=== PATIENT | male | born 1995 | race Caucasian/White ===

== ENCOUNTER → 2017-05-07 | Outpatient (CLI) | payer BC ==
[~2017-05-07] MED LIST: BUDE3CAP14 PO; GADAVIST IV PRN; GLUCAGON FOR INJ 1 MG VIAL IM SCH; NURSING VERBAL MED ORDER ONE
--- NOTE | 2017-05-07 15:39 | DIAGNOSTIC IMAGING REPORT ---
MR ENTEROGRAPHY CLINICAL HISTORY: Crohn's disease. Generalized abdominal pain. COMPARISON STUDY: Abdominal CT dated 05/06/2016. TECHNIQUE: MR enterography of the abdomen and pelvis is performed utilizing various T1 and T2-weighted sequences in the axial and coronal planes. Dynamic coronal imaging is performed and reviewed on a separate OsiriX independent workstation. Contrast enhanced images were acquired following the IV administration of 6.5 cc of Gadavist. 1 mg of glucagon was given intramuscularly prior to the examination. Examination is degraded by a paucity of intraperitoneal fat. FINDINGS: There is no bowel obstruction. There is a long segment of mildly thick-walled and hyperemic small bowel involving the distal/terminal ileum. This measures at least 20 cm in length. Mildly distended loops in the pelvis measure up to 3.5 cm and demonstrate air-fluid levels. The terminal ileum appears narrowed and mild stricturing is not excluded. No significant pericolonic inflammation is identified. Productive changes are suggested in the surrounding fat. There is no evidence of abscess or fistula. The liver, gallbladder, spleen, adrenal glands, kidneys, and pancreas are grossly normal as imaged. The pelvic viscera is normal as imaged. There is no abdominal ascites or pleural effusion. No abdominal lymphadenopathy is seen. The visualized bony structures are within normal limits. IMPRESSION: 1. There is a long segment of mildly thick-walled and hyperemic small bowel involving the distal/terminal ileum. This is consistent with the reported history of Crohn's disease. Active Crohn's disease is not excluded. 2. No bowel obstruction is seen. 3. There are mildly distended loops of small bowel in the deep pelvis with air-fluid levels. This may be related to a mild ileus. The terminal ileum appears decompressed and some degree of stricturing is not excluded. Clinical correlation will be required. 4. There is no evidence of abscess or fistula formation. Dictated: 05/07/2017 3:05 PM Transcribed: 05/07/2017 3:39 PM [facility] Electronically signed by: Andre Miramontes M.D. 05/07/2017 3:52 PM Dictated Date/Time: 05/07/2017 3:05 PM
== END | disposition home or self-care (01) ==
LOC: C.MRI 12:49
PROVIDERS: ATTEND Nurse Practitioner
DX: K50.813 Crohn's disease of both small and large intestine with fistula (principal); R10.10 Upper abdominal pain, unspecified

== ENCOUNTER → 2017-10-23 | Outpatient (CLI) | payer BC ==
[~2017-10-23] MED LIST changes: +BUDE1CAP6 PO; -BUDE3CAP14 PO; -GADAVIST IV PRN; -GLUCAGON FOR INJ 1 MG VIAL IM SCH; -NURSING VERBAL MED ORDER ONE
== END | disposition home or self-care (01) ==
LOC: C.RDSM 19:08
PROVIDERS: ATTEND Orthopaedic Surgery
DX: T14.8XXA Other injury of unspecified body region, initial encounter (principal); X58.XXXA Exposure to other specified factors, initial encounter

== ENCOUNTER 2021-10-28 18:51 | Inpatient (IN) ==
[2021-10-28 19:51] LABS: Appearance Urine Clear (Clear); Bacteria Urine Automated Negative (Negative); Blood Urine Negative (Negative); Color Urine Dark Yellow; Glucose Urine UA Negative (Negative); Ketones Urine 3+ (Negative); Leukocyte Esterase Urine Negative (Negative); Nitrite Urine Negative (Negative); Protein Urine Trace (Negative); RBC Urine Automated 0-4 /hpf (0-4); Specific Gravity Urine 1.038 (1.000-1.030); Urobilinogen Urine Negative (Negative); pH Urine 5.5 (4.5-7.5)
[2021-10-28 19:53] LABS: Basophils # (auto) 0.02 K/uL (0-0.2); Basophils % (auto) 0.2 %; Eosinophils # (auto) 0.06 K/uL (0-0.5); Eosinophils % (auto) 0.6 %; Hematocrit (blood only) 43.1 % (42-52); Hemoglobin 14.5 g/dL (14.0-18.0); Immature Granulocytes # (auto) 0.02 K/uL (0.00-0.02); Immature Granulocytes % (auto) 0.2 %; Lymphocytes # (auto) 1.76 K/uL (1.2-3.4); Lymphocytes % (auto) 17.9 %; Mean Corpuscular Hemoglobin 30.1 pg (25-34); Mean Corpuscular Hgb Conc 33.6 g/dL (32-36); Mean Corpuscular Volume 89.4 fL (80-100); Mean Platelet Volume 10.2 fL (7.4-10.4); Monocytes # (auto) 1.22 K/uL (0.11-0.59); Monocytes % (auto) 12.4 %; Neutrophils # (auto) 6.77 K/uL (1.4-6.5); Neutrophils % (auto) 68.7 %; Platelet Count 453 K/uL (130-400); RDW Coefficient of Variation 13.2 % (11.5-14.5); RDW Standard Deviation 43.4 fL (36.4-46.3); Red Blood Count 4.82 M/uL (4.7-6.1); White Blood Count 9.85 K/uL (4.8-10.8)
[2021-10-28 19:58] LABS: Bilirubin Urine 1+ (Negative)
[2021-10-28 20:13] LABS: Albumin Globulin Ratio 0.9 (0.9-2); BUN Creatinine Ratio 14.6 (10-20); Bilirubin,Total 0.5 mg/dl (0.2-1.0); Calcium 9.2 mg/dl (8.5-10.1); Creatinine Clr Calc Pharmacy 121.5 ml/min; Est GFR (African American) 126.8 ml/min; Est GFR (Non-African American) 109.4 ml/min; Globulin 4.4 gm/dl (2.5-4.0); Potassium 3.7 mmol/L (3.5-5.1); Total Protein 8.4 gm/dl (6.0-8.3)
[2021-10-28] MEDS ORDERED: SODIUM CHLORIDE 0.9% 1000ML 1,000 ML IV ONE (20:33)
[2021-10-28] MEDS ORDERED: OPTIRAY 320 100ml IV ONE (21:11)
--- NOTE | 2021-10-28 21:28 | CT Scan Report ---
CT abd pelvis IV con only CLINICAL HISTORY: llq pain TECHNIQUE: Helical axial images of the abdomen and pelvis were obtained and displayed. Automated dose lowering techniques and/or adjustment according to patient size were utilized for this exam. This e xam was performed with intravenous contrast. COMPARISON: None available at the time of this dictation. FINDINGS: Lower chest: No acute abnormality Liver: Unremarkable. No focal lesions are seen. Gallbladder and biliary tree: No calcified gallstones. Normal caliber wall. No intra- or extrahepatic biliary ductal dilation. Pancreas: Unremarkable, no focal lesions. Spleen: Unremarkable. Adrenals: Unremarkable. Kidneys and ureters: Unremarkable. Bladder: Unremarkable. Reproductive organs: Unremarkable. Bowel: There is marked wall thickening of the cecum and terminal ileum with surrounding fat stranding . There is a in adjacent fluid collection in the mid pelvis measuring approximately 52 x 24 mm. The a ppendix is normal. The remainder of the colon is normal in appearance. Of note, the fat plane between the inflamed bowel and the bladder is preserved. Lymph nodes Retroperitoneal: Unremarkable. Mesenteric: Unremarkable. Pelvic: Subcentimeter nodes are seen in the right external iliac stations. Peritoneum: Normal. Vessels: Unremarkable. Abdominal wall: A fat-containing umbilical hernia is seen. Bones: Unremarkable. IMPRESSION: Inflammatory changes of the terminal ileum and proximal ascending colon are seen, worsened from prior exam, with surrounding fat stranding and also abscess versus contained perforation in the adjacent m esentery. No fistulas are seen. Findings are compatible with history of Crohn's disease. ACT 112: Negative or not required by law. Electronically signed by: Asad Estrada M.D. 10/28/2021 9:27 PM
[2021-10-28] MEDS ORDERED: PIPERACILLIN/TAZOBACTAM 4.5 GM/120 ML BAG IV ONE (21:41)
--- NOTE | 2021-10-28 22:12 | Emergency Department Note ---
History of Present Illness General Chief Complaint: Abdominal Pain Stated Complaint: ABDOMINAL PAIN Time Seen by Provider: 10/28/21 20:24 History of Present Illness Provider Complaint: abdominal pain Onset (ago): 1 week(s) Pain Consistency: constant Location: LLQ Radiation: none Severity: moderate Maximum Pain Intensity: 6 Current Pain Intensity: 6 Quality: + stabbing and + sharp Relieved By: + nothing Exacerbated By: + nothing Context: + history of similar episodes (History of Crohn's disease); no foreign travel, no possible food poisoning, no sick contacts, no recent antibiotic use, no recent surgery/procedure or no recent injury Associated Symptoms: no nausea, no vomiting, no diarrhea, no fever, no chills, no constipation, no dysuria, no hematemesis, no hematochezia, no melena, no hematuria, no anorexia, no syncope, no headache, no neck pain, no back pain, no chest pain, no weakness, no breathing difficulty and no numbness Patient states he recently moved back to [facility] from [place]. Patient states he has been following up at [place] for his Crohn's disease and his GI doctor at [place] told him to come get a scan of his abdomen. He states in the past he seen Dr. Landaverde at [facility]. Home Medications Medication Instructions Recorded Confirmed Type infliximab 100 mg intravenous 0 mg IV .Q8WKS 10/28/21 10/28/21 History solution (Remicade) Allergies Allergy/AdvReac Type Severity Reaction Status Date / Time No Known Allergies Allergy Verified 10/28/21 21:16 Past Med/Surg History Medical History (Updated 10/28/21 @ 23:28 by [place]) Crohn disease No pertinent family history Surgical History (Updated 10/28/21 @ 22:10 by [place]) No pertinent past surgical history Social History Smoking Status: Never smoker Preferred Language: Yi Feels Safe at Home: Yes Review of Systems A total of 10 systems reviewed and were otherwise negative Physical Exam Vital Signs: Vital Signs - 24 hr 10/28/21 19:05 10/28/21 20:44 Temperature 36.9 C Temperature Source Temporal Artery Sc an Pulse Rate 105 H Pulse Rate [Finger ] 100 H Respiratory Rate 18 18 Respiratory Effort / Characteristics Non-Labored Sponta neous Non-Labored Respiratory Depth Normal Normal Respiratory Patter n Regular Blood Pressure 148/79 H Blood Pressure [Ri ght Arm] 141/81 H Blood Pressure Marcelina n 102 Blood Pressure Marcelina n [Right Arm] 101 Blood Pressure Pos ition Sitting Blood Pressure Pos ition [Right Arm] Sitting Pulse Oximetry 98 100 Oxygen Delivery Me thod Room Air Room Air Sepsis Recent Feve r Within 48 Hours No Sepsis New/Unexpla ined Change in Men petr Status N/A Sepsis Action Take n by Nursing No Action Required Physical Exam: Physical Exam GENERAL: He is oriented to person, place, and time. He appears well-developed and well-nourished. He does not appear distressed. HENT: Exam performed. - Head: Normocephalic and atraumatic. - Right Ear: External ear normal. No mastoid tenderness. - Left Ear: External ear normal. No mastoid tenderness. - Mouth/Throat: The oropharynx is clear and moist. No trismus in the jaw. No dental abscesses or uvula swelling. No oropharyngeal exudate or tonsillar abscesses. EYES: Conjunctivae and EOM are normal. Pupils are equal, round, and reactive to light. Right eye exhibits no discharge. Left eye exhibits no discharge. No scleral icterus. NECK: Normal range of motion. Neck supple. No JVD present. No spinous process tenderness present. No carotid bruit present. No rigidity. No tracheal deviation and normal range of motion present. No Brudzinski's sign and no Kernig's sign noted. CV: Normal rate, regular rhythm, normal heart sounds and intact distal pulses. There is no peripheral edema. Palpable radial pulses bue. PULM/CHEST: Effort normal and breath sounds normal. No respiratory distress. No stridor. He has no wheezes. He has no rales. - Chest Wall: He exhibits no tenderness. ABD: The abdomen is soft. Bowel sounds are normal. He has no distension. No mass is present. There is tenderness to palpation of the left lower quadrant. There is no rebound, no guarding, no Desai's sign and no tenderness at McBurney's point. Rovsig negative. MUSC/SKEL: Normal range of motion. There is no peripheral edema, tenderness or deformity. LYMPH: No cervical adenopathy. NEURO: He is alert and oriented to person, place, and time. He has normal strength. No cranial nerve deficit or sensory deficit. Coordination and gait normal. GCS eye subscore is 4. GCS verbal subscore is 5. GCS motor subscore is 6. Cerebellar tests wnl. SKIN: Skin is warm and dry. He is not diaphoretic. PSYCH: He has a normal mood and affect. Behavior is normal. Judgment and thought content normal. Course Course 2023: The patient was evaluated in room B4. A complete history and physical exam was performed Cardiac monitoring: An order was placed for continuous cardiac monitoring. The monitor shows a rate of 100 with sinus rhythm 2132: Vital signs stable. Labs within normal limits. CT of the abdomen showed wall thickening of the cecum and terminal ileum with surrounding fat stranding. There is an adjacent fluid collection in the mid pelvis measuring 52 x 24 mm with surrounding fat stranding which could represent an abscess versus contained perforation. Discussed case with on-call surgery Dr. Curran who states he recommends transfer for IR drainage. Patient states he prefers to go to either [place] or [facility]. 2147: Spoke with Dr. Zapata colorectal surgery [facility] who states that there are no beds available. Will attempt to call [facility]. 2155: [place] loading unit operator powder charging states she spoke with [facility] and there are no beds available. Discussed this with the patient and he is okay to try and contact [facility] to see if there are beds available. 2210: Spoke with Dr. Antoine Gallo and there are no beds available. Dr. Schultz states she is happy to accept the patient however she is not sure when a bed will be available. Will attempt to contact [facility] again as there are no beds available at [facility] and the patient is known to [facility] 2220: Spoke with [place] transfer center at [facility] who states there are no beds available and they are not sure when a bed will be available. Spoke with Dr. Anne colorectal surgery who states that there are no beds available also and that they wish they can help with there not sure if they will be available to be concerned about available. I did explain to Dr. Anne that the patient is becoming extremely frustrated as there are no beds available at 3 tertiary care centers and has mentioned that he is thinking about driving himself down to [facility]. Both he and the transfer state and are stated that if the patient chooses to this he could check into the emergency department. 2245: Spoke with general surgery at [facility] Dr. Curran who states that if there are no beds available at any tertiary care center the patient can be admitted to the medicine team and he will be on consult. He states that he will not be performing any surgery on the patient but he can be admitted to medicine and he can be on consult until bed becomes available at the tertiary care center. I did talk to the patient about this and the patient states he wants to discuss with his parents about what to do. 2325: Vital signs stable. After much discussion with his family members, the patient states he chooses to be aditted here at this facility for another bed to be available [facility]. Called transfer center back and spoke with Dr. Anne again who stated that he would be the accepting physician. Dr. Quiroz [facility] hospitalist was made aware of the patient and the plan. Dr. Curran placed on consult Administered Medications Discontinued Medications Sodium Chloride (Nss 1000ml) 1,000 mls @ 999 mls/hr IV .Q1H1M ONE Stop: 10/28/21 21:33 Last Infusion: 10/28/21 21:44 Dose: 0 mls/hr Documented by: [id number] Admin: 10/28/21 20:40 Dose: 999 mls/hr Documented by: [id number] Piperacillin Sod/Tazobactam Sod (Zosyn) 4.5 gm in 120 mls @ 240 mls/hr IV NOW ONE Stop: 10/28/21 22:10 Last Infusion: 10/28/21 22:18 Dose: 0 mls/hr Documented by: [id number] Admin: 10/28/21 21:46 Dose: 240 mls/hr Documented by: [id number] Ioversol (Optiray 320 100ml) 95 ml IV ONCE ONE Stop: 10/28/21 21:12 Last Admin: 10/28/21 21:15 Dose: 95 ml Documented by: [id number] Medical Decision Making Laboratory Data Result diagrams: 10/28/21 19:35 10/28/21 19:35 Lab Results 10/28/21 10/28/21 10/28/21 Range/Units 19:30 19:35 19:35 WBC 9.85 (4.8-10.8) K/uL RBC 4.82 (4.7-6.1) M/uL Hgb 14.5 (14.0-18.0) g/dL Hct 43.1 (42-52) % MCV 89.4 (80-100) fL MCH 30.1 (25-34) pg MCHC 33.6 (32-36) g/dL RDW Std Deviation 43.4 (36.4-46.3) fL RDW Coeff of Tanvir 13.2 (11.5-14.5) % Plt Count 453 H (130-400) K/uL MPV 10.2 (7.4-10.4) fL Immature Gran % (Auto) 0.2 % Neut % (Auto) 68.7 % Lymph % (Auto) 17.9 % Clayton % (Auto) 12.4 % Eos % (Auto) 0.6 % Baso % (Auto) 0.2 % Neut # (Auto) 6.77 H (1.4-6.5) K/uL Lymph # (Auto) 1.76 (1.2-3.4) K/uL Clayton # (Auto) 1.22 H (0.11-0.59) K/uL Eos # (Auto) 0.06 (0-0.5) K/uL Baso # (Auto) 0.02 (0-0.2) K/uL Immature Gran # (Auto) 0.02 (0.00-0.02) K/uL Sodium 135 L (136-145) mmol/L Potassium 3.7 (3.5-5.1) mmol/L Chloride 100 (98-107) mmol/L Carbon Dioxide 24 (21-32) mmol/L Anion Gap 11 (3-11) BUN 14 (6-23) mg/dl Creatinine 0.96 (0.6-1.4) mg/dl Est Cr Clr Drug Dosing 121.5 ml/min Est GFR ( Amer) 126.8 ml/min Est GFR (Non-Af Amer) 109.4 ml/min BUN/Creatinine Ratio 14.6 (10-20) Glucose 87 (70-99(Fasting)) mg/dl Calcium 9.2 (8.5-10.1) mg/dl Total Bilirubin 0.5 (0.2-1.0) mg/dl AST 12 L (13-39) U/L ALT 12 (7-52) U/L Alkaline Phosphatase 85 (34-104) U/L Total Protein 8.4 H (6.0-8.3) gm/dl Albumin 4.0 (3.4-5.0) gm/dl Globulin 4.4 H (2.5-4.0) gm/dl Albumin/Globulin Ratio 0.9 (0.9-2) Lipase 9 L (11-82) U/L Urine Color Dark Yellow Urine Appearance Clear (Clear) Urine pH 5.5 (4.5-7.5) Ur Specific Juliette 1.038 H (1.000-1.030) Urine Protein Trace H (Negative) Urine Glucose (UA) Negative (Negative) Urine Ketones 3+ H (Negative) Urine Blood Negative (Negative) Urine Nitrite Negative (Negative) Urine Bilirubin 1+ H (Negative) Urine Urobilinogen Negative (Negative) Ur Leukocyte Esterase Negative (Negative) Urine WBC (Auto) 1-5 (0-5) /hpf Urine RBC (Auto) 0-4 (0-4) /hpf U Hyaline Cast (Auto) 5-10 H (0-5) /lpf U Epithel Cells (Auto) 5-10 H (0-5) /lpf Urine Bacteria (Auto) Negative (Negative) SARS-CoV-2, RNA, NAAT (NEGATIVE) 10/28/21 Range/Units 21:51 WBC (4.8-10.8) K/uL RBC (4.7-6.1) M/uL Hgb (14.0-18.0) g/dL Hct (42-52) % MCV (80-100) fL MCH (25-34) pg MCHC (32-36) g/dL RDW Std Deviation (36.4-46.3) fL RDW Coeff of Tanvir (11.5-14.5) % Plt Count (130-400) K/uL MPV (7.4-10.4) fL Immature Gran % (Auto) % Neut % (Auto) % Lymph % (Auto) % Clayton % (Auto) % Eos % (Auto) % Baso % (Auto) % Neut # (Auto) (1.4-6.5) K/uL Lymph # (Auto) (1.2-3.4) K/uL Clayton # (Auto) (0.11-0.59) K/uL Eos # (Auto) (0-0.5) K/uL Baso # (Auto) (0-0.2) K/uL Immature Gran # (Auto) (0.00-0.02) K/uL Sodium (136-145) mmol/L Potassium (3.5-5.1) mmol/L Chloride (98-107) mmol/L Carbon Dioxide (21-32) mmol/L Anion Gap (3-11) BUN (6-23) mg/dl Creatinine (0.6-1.4) mg/dl Est Cr Clr Drug Dosing ml/min Est GFR ( Amer) ml/min Est GFR (Non-Af Amer) ml/min BUN/Creatinine Ratio (10-20) Glucose (70-99(Fasting)) mg/dl Calcium (8.5-10.1) mg/dl Total Bilirubin (0.2-1.0) mg/dl AST (13-39) U/L ALT (7-52) U/L Alkaline Phosphatase (34-104) U/L Total Protein (6.0-8.3) gm/dl Albumin (3.4-5.0) gm/dl Globulin (2.5-4.0) gm/dl Albumin/Globulin Ratio (0.9-2) Lipase (11-82) U/L Urine Color Urine Appearance (Clear) Urine pH (4.5-7.5) Ur Specific Juliette (1.000-1.030) Urine Protein (Negative) Urine Glucose (UA) (Negative) Urine Ketones (Negative) Urine Blood (Negative) Urine Nitrite (Negative) Urine Bilirubin (Negative) Urine Urobilinogen (Negative) Ur Leukocyte Esterase (Negative) Urine WBC (Auto) (0-5) /hpf Urine RBC (Auto) (0-4) /hpf U Hyaline Cast (Auto) (0-5) /lpf U Epithel Cells (Auto) (0-5) /lpf Urine Bacteria (Auto) (Negative) SARS-CoV-2, RNA, NAAT NEGATIVE (NEGATIVE) Imaging Data Radiologist's Impression: Abdomen/Pelvis CT 10/28/21 20:33 CT abd pelvis IV con only CLINICAL HISTORY: llq pain TECHNIQUE: Helical axial images of the abdomen and pelvis were obtained and displayed. Automated dose lowering techniques and/or adjustment according to patient size were utilized for this exam. This exam was performed with intravenous contrast. COMPARISON: None available at the time of this dictation. FINDINGS: Lower chest: No acute abnormality Liver: Unremarkable. No focal lesions are seen. Gallbladder and biliary tree: No calcified gallstones. Normal caliber wall. No intra- or extrahepatic biliary ductal dilation. Pancreas: Unremarkable, no focal lesions. Spleen: Unremarkable. Adrenals: Unremarkable. Kidneys and ureters: Unremarkable. Bladder: Unremarkable. Reproductive organs: Unremarkable. Bowel: There is marked wall thickening of the cecum and terminal ileum with surrounding fat stranding. There is a in adjacent fluid collection in the mid pelvis measuring approximately 52 x 24 mm. The appendix is normal. The remainder of the colon is normal in appearance. Of note, the fat plane between the inflamed bowel and the bladder is preserved. Lymph nodes Retroperitoneal: Unremarkable. Mesenteric: Unremarkable. Pelvic: Subcentimeter nodes are seen in the right external iliac stations. Peritoneum: Normal. Vessels: Unremarkable. Abdominal wall: A fat-containing umbilical hernia is seen. Bones: Unremarkable. IMPRESSION: Inflammatory changes of the terminal ileum and proximal ascending colon are seen, worsened from prior exam, with surrounding fat stranding and also abscess versus contained perforation in the adjacent mesentery. No fistulas are seen. Findings are compatible with history of Crohn's disease. ACT 112: Negative or not required by law. Electronically signed by: Asad Estrada M.D. 10/28/2021 9:27 PM MDM Narrative 2023: The patient was evaluated in room B4. A complete history and physical exam was performed Cardiac monitoring: An order was placed for continuous cardiac monitoring. The monitor shows a rate of 100 with sinus rhythm 2132: Vital signs stable. Labs within normal limits. CT of the abdomen showed wall thickening of the cecum and terminal ileum with surrounding fat stranding. There is an adjacent fluid collection in the mid pelvis measuring 52 x 24 mm with surrounding fat stranding which could represent an abscess versus contained perforation. Discussed case with on-call surgery Dr. Curran who states he recommends transfer for IR drainage. Patient states he prefers to go to either [place] or [facility]. 2147: Spoke with Dr. Zapata colorectal surgery [facility] who states that there are no beds available. Will attempt to call [facility]. 2154: [place] loading unit operator powder charging states she spoke with [facility] and there are no beds available. Discussed this with the patient and he is okay to try and contact [facility] to see if there are beds available. 2210: Spoke with Dr. Antoine Gallo and there are no beds available. Dr. Schultz states she is happy to accept the patient however she is not sure when a bed will be available. Will attempt to contact [facility] again as there are no beds available at [facility] and the patient is known to [facility] 2220: Spoke with [place] transfer center at [facility] who states there are no beds available and they are not sure when a bed will be available. Spoke with Dr. Anne colorectal surgery who states that there are no beds available also and that they wish they can help with there not sure if they will be available to be concerned about available. I did explain to Dr. Anne that the patient is becoming extremely frustrated as there are no beds available at 3 tertiary care centers and has mentioned that he is thinking about driving himself down to [facility]. Both he and the transfer state and are stated that if the patient chooses to this he could check into the emergency department. 2245: Spoke with general surgery at [facility] Dr. Curran who states that if there are no beds available at any tertiary care center the patient can be admitted to the medicine team and he will be on consult. He states that he will not be performing any surgery on the patient but he can be admitted to medicine and he can be on consult until bed becomes available at the tertiary care center. I did talk to the patient about this and the patient states he wants to discuss with his parents about what to do. 2325: Vital signs stable. After much discussion with his family members, the patient states he chooses to be aditted here at this facility for another bed to be available [facility]. Called transfer center back and spoke with Dr. Anne again who stated that he would be the accepting physic hima. Dr. Quiroz [facility] hospitalist was made aware of the patient and the plan. Dr. Curran placed on consult Impression & Plan Crohn disease Discharge Plan Visit Data Chief Complaint: Abdominal Pain Stated Complaint: ABDOMINAL PAIN ED Provider: [place] Discharge Problem: Crohn disease Patient Disposition: Being Evaluated by Hospitalist Forms Stand Alone Forms: [facility] Prescriptions Prescriptions: No Action infliximab [Remicade] 100 mg Recon Soln 0 mg IV .Q8WKS RF: 0 Referrals Referrals: PCP,NO [Primary Care Provider] - Discharge Problem: Crohn disease Qualifiers: Gastrointestinal tract location: unspecified location Digestive disease complication type: with abscess Qualified Code(s): K50.914 - Crohn's disease, unspecified, with abscess
--- NOTE | 2021-10-28 23:47 | History & Physical Report ---
Date of Service October 28, 2021 Assessment & Plan (1) Abdominal pain: Plan: Rodrigue Gongora is a 26yo male with PMHx significant for Crohn's disease (gets Remicade injections Q8wks - last on 10/07) who presented to [facility] ED on 10/28 for abdominal pain - found to have abscess vs contained perforation in proximal ascending colon. Abdominal Pain LLQ abdominal pain with intermittent fever/chills x1 week. CT A/P with inflammatory changes in terminal ileum and proximal ascending colon (worsened from prior exam) as well as abscess vs contained perforation in adjacent mesentery, without fistulas. - General Surgery consulted - recommends IR drainage at tertiary center. Currently there are no available beds at [facility], [facility] or [facility]. Patient has decided to be admitted here for med management. Dr. Curran will be consulted, and he is currently on wait list for a bed at [facility] (Dr. Anne is accepting physician) - continue Zosyn 4.5g IV Q8H - will not start steroids at this time given abscess vs contained perf - NPO, will start LR @80cc/hr - Tylenol 1g IV Q8H PRN for pain Crohn's Disease No previous surgeries. Symptoms had previously been well controlled on Remicade. - Remicade not due for another 5 weeks FEN/GI: NPO, LR @80cc/hr DVT Prophylaxis: not indicated Code Status: full code Disposition: med/surg with tele (2) Crohn disease: History of Present Illness Chief Complaint: abdominal pain Primary Care Provider: NO PCP Rodrigue Gongora is a 26yo male with PMHx significant for Crohn's disease (gets Remicade injections Q8wks - last on 10/07) who presented to [facility] ED on 10/28 for constant LLQ abdominal pain x, without associated fever/chills, diarrhea /hematochezia/melena or N/V/hematemesis. Patient follows with [facility] GI for Crohn's disease and associated Remicade injections - he contacted his GI doctor regarding these symptoms and he was told to come for evaluation. In the ED, the patient was tachycardic to 105bpm and mildly hypertensive to 148/79 but otherwise hemodynamically stable and afebrile. Laboratory evaluation significant for plts 453, Na 135. Otherwise CBC/CMP unremarkable. Lipase WNL. UA without sign of infection. CT A/P showing inflammatory changes in terminal ileum and proximal ascending colon (worsened from prior exam) as well as abscess vs contained perforation in adjacent mesentery, without fistulas. Patient was given 1L NSS bolus and was started on Zosyn. Has not received pain medications thus far. Dr. Curran was consulted and recommends transfer to tertiary center for IR drainage, but there are currently no available beds in [facility], [facility] or [facility]. Patient has decided to be admitted here for med management. Dr. Curran will be consulted, and he is currently on wait list for a bed at [facility] (Dr. Anne is accepting physician). 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 NAD. Cooperative. HEENT: Atraumatic, normocephalic. Pulm: CTAB A&P. -wheezes, -rales, -rhonchi. Symmetrical chest rise. No increase work of breathing. No respiratory distress. Cardiac: RRR, -mrg. Radial pulses intact and symmetrical. Abdominal: soft, non-distended, NA BS x 4, mild TTP in LLQ without rebound or guarding Skin: warm, dry, no rash Results & Data Results & Data ([facility]) Vital Signs (Past 12 Hours) Vital Signs Temp Pulse Pulse Resp BP BP Pulse Ox 10/28/21 20:44 100 H 18 141/81 H 100 10/28/21 19:05 36.9 C 105 H 18 148/79 H 98 Supervising Physician Co-Signing Physician Notes Attending addendum: I have physically seen this patient, have supervised the medical residents activities, and agree with the H&P unless as otherwise noted. Assessment and Plan: Crohn's exacerbation/inflammation in terminal ileum and proximal ascending colon- Abscess versus contained perforation and adjacent mesentery Zosyn 4.5 g IV every 8 hours N.p.o. LR at 80 mils per hour Acetaminophen 1 g IV every 8 hours as needed mild pain or fever On Remicade in outpatient setting Follows with [facility] physicians Consult to surgery, recommended referral to tertiary care center for IR drainage, however, multiple attempts to facilities showed unavailability of bed Zofran 4 mg IV every 6 hours as needed Famotidine 20 mg IV every 12 hours Resident Activity Tracking Resident Involvement: Resident Care Provided Care Provided: Adult Hospital Medicine (1) Crohn disease Digestive disease complication type: with abscess Gastrointestinal tract location: unspecified location Qualified Code(s): K50.914 - Crohn's disease, unspecified, with abscess
[2021-10-29] MEDS ORDERED: ACETAMINOPHEN 1000 MG/100 ML IV IV PRN (00:13)
[2021-10-29] MEDS: LACTATED RINGER'S 1,000 ML IV SCH ×3 (00:56→21:18)
--- NOTE | 2021-10-29 00:58 | Surgery Consultation ---
Date of Consultation October 29, 2021 Assessment & Plan (1) Crohn disease: (2) Perforated abdominal viscus: 26-year-old with a history of Crohn's disease presents with abdominal pain and CT scan demonstrating contained perforation and inflammation of the terminal ileum. This most likely related to his Crohn's disease. He is not tachycardic and does not have a fever. White blood cell count is normal. He will be admitted to the hospital and placed on IV fluids and IV antibiotics. Discussion about possible transfer to tertiary care center for IR drainage of the abscess if he does not improve. We will follow him closely. History of Present Illness Reason for Consultation: 26-year-old with Crohn's disease and contained perforation Requesting Physician: MD Ras Attending Physician: MD Ras History of Present Illness 26-year-old gentleman with a 5-year history of Crohn's disease presents with worsening right lower quadrant pain and subjective fevers at home. He denies nausea or vomiting. He has not had a bowel movement today, however they have been normal. He has never had surgery on his abdomen. He has had 1 or 2 episodes of partial small bowel obstruction due to the Crohn's. He follows with a GI doctor in [facility]. CT scan demonstrates terminal ileitis with what appears to be contained perforation with small abscess measuring 2 x 5 cm in diameter. He denies chest pain or shortness of breath. Allergies Allergy/AdvReac Type Severity Reaction Status Date / Time No Known Allergies Allergy Verified 10/28/21 21:16 Home Medications Medication Instructions Recorded Confirmed Type infliximab 100 mg intravenous 0 mg IV .Q8WKS 10/28/21 10/28/21 History solution (Remicade) Patient History Medical History Crohn disease No pertinent family history Surgical History No pertinent past surgical history Social History Smoking Status: Never smoker Preferred Language: Hebrew Feels Safe at Home: Yes Review of Systems Review of Systems: All systems reviewed & are unremarkable except as noted in HPI & below Physical Exam Constitutional: WD/WN, vitals as above Neck: trachea midline, no thyromegaly Respiratory: normal respiratory effort, lungs clear to auscultation Cardiovascular: RRR, no murmur, no edema Gastrointestinal (Abdomen): Inspection/Auscultation: abdomen normal to inspection; abdomen not distended Percussion/Palpation: + abdomen tender (Suprapubic area/right lower quadrant) and abdomen soft; no guarding and abdomen not rigid Musculoskeletal: Extremities: no cyanosis and no clubbing Skin: no rashes, warm and dry Psychiatric: A+Ox3, euthymic affect Results & Data ([facility]) Vital Signs (Past 12 Hours) Vital Signs Temp Pulse Pulse Resp BP BP Pulse Ox 10/28/21 20:44 100 H 18 141/81 H 100 10/28/21 19:05 36.9 C 105 H 18 148/79 H 98 Laboratory Results 10/28/21 10/28/21 10/28/21 Range/Units 21:51 19:35 19:35 WBC 9.85 (4.8-10.8) K/uL RBC 4.82 (4.7-6.1) M/uL Hgb 14.5 (14.0-18.0) g/dL Hct 43.1 (42-52) % MCV 89.4 (80-100) fL MCH 30.1 (25-34) pg MCHC 33.6 (32-36) g/dL RDW Std Deviation 43.4 (36.4-46.3) fL RDW Coeff of Tanvir 13.2 (11.5-14.5) % Plt Count 453 H (130-400) K/uL MPV 10.2 (7.4-10.4) fL Immature Gran % (Auto) 0.2 % Neut % (Auto) 68.7 % Lymph % (Auto) 17.9 % Bulloch % (Auto) 12.4 % Eos % (Auto) 0.6 % Baso % (Auto) 0.2 % Neut # (Auto) 6.77 H (1.4-6.5) K/uL Lymph # (Auto) 1.76 (1.2-3.4) K/uL Bulloch # (Auto) 1.22 H (0.11-0.59) K/uL Eos # (Auto) 0.06 (0-0.5) K/uL Baso # (Auto) 0.02 (0-0.2) K/uL Immature Gran # (Auto) 0.02 (0.00-0.02) K/uL Sodium 135 L (136-145) mmol/L Potassium 3.7 (3.5-5.1) mmol/L Chloride 100 (98-107) mmol/L Carbon Dioxide 24 (21-32) mmol/L Anion Gap 11 (3-11) BUN 14 (6-23) mg/dl Creatinine 0.96 (0.6-1.4) mg/dl Est Cr Clr Drug Dosing 121.5 ml/min Est GFR ( Amer) 126.8 ml/min Est GFR (Non-Af Amer) 109.4 ml/min BUN/Creatinine Ratio 14.6 (10-20) Glucose 87 (70-99(Fasting)) mg/dl Calcium 9.2 (8.5-10.1) mg/dl Total Bilirubin 0.5 (0.2-1.0) mg/dl AST 12 L (13-39) U/L ALT 12 (7-52) U/L Alkaline Phosphatase 85 (34-104) U/L Total Protein 8.4 H (6.0-8.3) gm/dl Albumin 4.0 (3.4-5.0) gm/dl Globulin 4.4 H (2.5-4.0) gm/dl Albumin/Globulin Ratio 0.9 (0.9-2) Lipase 9 L (11-82) U/L Urine Color Urine Appearance (Clear) Urine pH (4.5-7.5) Ur Specific [place] (1.000-1.030) Urine Protein (Negative) Urine Glucose (UA) (Negative) Urine Ketones (Negative) Urine Blood (Negative) Urine Nitrite (Negative) Urine Bilirubin (Negative) Urine Urobilinogen (Negative) Ur Leukocyte Esterase (Negative) Urine WBC (Auto) (0-5) /hpf Urine RBC (Auto) (0-4) /hpf U Hyaline Cast (Auto) (0-5) /lpf U Epithel Cells (Auto) (0-5) /lpf Urine Bacteria (Auto) (Negative) SARS-CoV-2, RNA, NAAT NEGATIVE (NEGATIVE) 10/28/21 Range/Units 19:30 WBC (4.8-10.8) K/uL RBC (4.7-6.1) M/uL Hgb (14.0-18.0) g/dL Hct (42-52) % MCV (80-100) fL MCH (25-34) pg MCHC (32-36) g/dL RDW Std Deviation (36.4-46.3) fL RDW Coeff of Tanvir (11.5-14.5) % Plt Count (130-400) K/uL MPV (7.4-10.4) fL Immature Gran % (Auto) % Neut % (Auto) % Lymph % (Auto) % [place] % (Auto) % Eos % (Auto) % Baso % (Auto) % Neut # (Auto) (1.4-6.5) K/uL Lymph # (Auto) (1.2-3.4) K/uL Bull[place] # (Auto) (0.11-0.59) K/uL Eos # (Auto) (0-0.5) K/uL Baso # (Auto) (0-0.2) K/uL Immature Gran # (Auto) (0.00-0.02) K/uL Sodium (136-145) mmol/L Potassium (3.5-5.1) mmol/L Chloride (98-107) mmol/L Carbon Dioxide (21-32) mmol/L Anion Gap (3-11) BUN (6-23) mg/dl Creatinine (0.6-1.4) mg/dl Est Cr Clr Drug Dosing ml/min Est GFR ( Amer) ml/min Est GFR (Non-Af Amer) ml/min BUN/Creatinine Ratio (10-20) Glucose (70-99(Fasting)) mg/dl Calcium (8.5-10.1) mg/dl Total Bilirubin (0.2-1.0) mg/dl AST (13-39) U/L ALT (7-52) U/L Alkaline Phosphatase (34-104) U/L Total Protein (6.0-8.3) gm/dl Albumin (3.4-5.0) gm/dl Globulin (2.5-4.0) gm/dl Albumin/Globulin Ratio (0.9-2) Lipase (11-82) U/L Urine Color Dark Yellow Urine Appearance Clear (Clear) Urine pH 5.5 (4.5-7.5) Ur Specific [place] 1.038 H (1.000-1.030) Urine Protein Trace H (Negative) Urine Glucose (UA) Negative (Negative) Urine Ketones 3+ H (Negative) Urine Blood Negative (Negative) Urine Nitrite Negative (Negative) Urine Bilirubin 1+ H (Negative) Urine Urobilinogen Negative (Negative) Ur Leukocyte Esterase Negative (Negative) Urine WBC (Auto) 1-5 (0-5) /hpf Urine RBC (Auto) 0-4 (0-4) /hpf U Hyaline Cast (Auto) 5-10 H (0-5) /lpf U Epithel Cells (Auto) 5-10 H (0-5) /lpf Urine Bacteria (Auto) Negative (Negative) SARS-CoV-2, RNA, NAAT (NEGATIVE) Diagnostic Findings CT abd pelvis IV con only CLINICAL HISTORY: llq pain TECHNIQUE: Helical axial images of the abdomen and pelvis were obtained and displayed. Automated dose lowering techniques and/or adjustment according to patient size were utilized for this exam. This exam was performed with intravenous contrast. COMPARISON: None available at the time of this dictation. FINDINGS: Lower chest: No acute abnormality Liver: Unremarkable. No focal lesions are seen. Gallbladder and biliary tree: No calcified gallstones. Normal caliber wall. No intra- or extrahepatic biliary ductal dilation. Pancreas: Unremarkable, no focal lesions. Spleen: Unremarkable. Adrenals: Unremarkable. Kidneys and ureters: Unremarkable. Bladder: Unremarkable. Reproductive organs: Unremarkable. Bowel: There is marked wall thickening of the cecum and terminal ileum with surrounding fat stranding. There is a in adjacent fluid collection in the mid pelvis measuring approximately 52 x 24 mm. The appendix is normal. The remainder of the colon is normal in appearance. Of note, the fat plane between the inflamed bowel and the bladder is preserved. Lymph nodes Retroperitoneal: Unremarkable. Mesenteric: Unremarkable. Pelvic: Subcentimeter nodes are seen in the right external iliac stations. Peritoneum: Normal. Vessels: Unremarkable. Abdominal wall: A fat-containing umbilical hernia is seen. Bones: Unremarkable. IMPRESSION: Inflammatory changes of the terminal ileum and proximal ascending colon are seen, worsened from prior exam, with surrounding fat stranding and also abscess versus contained perforation in the adjacent mesentery. No fistulas are seen. Findings are compatible with history of Crohn's disease. (1) Crohn disease Digestive disease complication type: with abscess Gastrointestinal tract location: unspecified location Qualified Code(s): K50.914 - Crohn's disease, unspecified, with abscess
[2021-10-29] MEDS ORDERED: PIPERACILL/TAZOBAC CONSULT ACTIVE PRN (01:47)
[2021-10-29] MEDS: PIPERACILLIN/TAZOBACTAM 3.375 GM in DEXTROSE 5% 100 ML IV SCH ×2 (02:14→10:09)
[2021-10-29] MEDS ORDERED: PIPERACILLIN/TAZOBACTAM 4.5 GM in DEXTROSE 5% 100 ML IV SCH (05:00)
[2021-10-29 05:57] LABS: Basophils # (auto) 0.02 K/uL (0-0.2); Basophils % (auto) 0.2 %; Eosinophils # (auto) 0.12 K/uL (0-0.5); Eosinophils % (auto) 1.1 %; Hematocrit (blood only) 38.1 % (42-52); Hemoglobin 12.5 g/dL (14.0-18.0); Immature Granulocytes # (auto) 0.02 K/uL (0.00-0.02); Immature Granulocytes % (auto) 0.2 %; Lymphocytes # (auto) 1.93 K/uL (1.2-3.4); Lymphocytes % (auto) 17.6 %; Mean Corpuscular Hemoglobin 29.6 pg (25-34); Mean Corpuscular Hgb Conc 32.8 g/dL (32-36); Mean Corpuscular Volume 90.3 fL (80-100); Monocytes # (auto) 1.52 K/uL (0.11-0.59); Monocytes % (auto) 13.9 %; Neutrophils # (auto) 7.36 K/uL (1.4-6.5); Platelet Count 426 K/uL (130-400); RDW Coefficient of Variation 13.3 % (11.5-14.5); RDW Standard Deviation 44.4 fL (36.4-46.3); Red Blood Count 4.22 M/uL (4.7-6.1); White Blood Count 10.97 K/uL (4.8-10.8)
[2021-10-29 06:13] LABS: BUN Creatinine Ratio 9.8 (10-20); Calcium 9.5 mg/dl (8.5-10.1); Creatinine Clr Calc Pharmacy 114.3 ml/min; Est GFR (African American) 117.9 ml/min; Est GFR (Non-African American) 101.7 ml/min; Potassium 3.6 mmol/L (3.5-5.1)
--- NOTE | 2021-10-29 07:25 | Hospitalist Progress Note ---
Date of Service October 29, 2021 Assessment & Plan (1) Crohn disease: (2) Perforated abdominal viscus: (3) Abdominal pain: Plan: Summary: 26 y/o M with Crohn's tx w/ Remicade for past 6 years who presented with LLQ showing radiologic evidence of either abscess vs. contained perforation in the terminal ileum/proximal ascending colon #Crohn's disease, #perforated abdominal viscus & #abdominal pain -supported by known hx of Crohn's, LLQ pain, leukocytosis. Primarily receives care for this from Dr. Villatoro at [facility] -complicated by abscess vs. contained perforation seen on CT abd/pelvis -pt is hemodynamically stable, IR drainage is warranted, waiting on placement to either [facility] -switch IV Zosyn to IV Unasyn as there are no major risk factors for Pseudomonas -continue IV LRs and IV Tylenol -monitor symptoms, vitals, and labs/diagnostics -FHx noteworthy for UC in father #Disposition -given that pt is medically stable, continue conservative medical management until bed opens up elsewhere for his IR procedure. -was accepted at [facility] -continue to monitor for any worsening in condition #FENGI: NPO Full code Admission and Anticipated Discharge Date Admission Date: October 29, 2021 Supervising Physician Co-Signing Physician Notes I personally examined the patient and verified all ulloa points of history and exam, discussed case, and agree with decision making with Kendal Desai MS2 feeling better abdominal pain better, still awaiting placement vitals noted nad heent nc at mmm breathing unlabored no accessory muscles good effort skin no rashes no pallor or icterus crohn's complicated by abscess - fortunately stable on abx. will still want to transfer to tertiary given crohn's / concern for inflammation potentially precpititating fistula, etc -- would want drained unless truly improves dramatically on abx alone. also given this flare would want his GI to eval for ?ongoing remicaide vs needing to consider other options otherwise as above Subjective CC: LLQ abdominal pain HPI: Rodrigue is a 26 y/o M w/ PMHx of Crohn's disease diagnosed in 2016/treated with Remicade, monitored by Dr. Villatoro ([facility]), who came to the ED on 10/28/[address] Villatoro's recommendation. In the week leading up to his ED presentation, he noted LLQ abdominal pain exacerbated with bowel movements and minimally alleviated by Tylenol. He also received blood work from [facility] (ordered by Dr. Villatoro), which the pt states showed "inflammation." He felt his sx were consistent with a Crohn's and noted having a single episode of fever (101 F) which occurred on 10/25/21. In the weeks leading up to his sx he had changes to his diet which he thinks may have contributed to his sx. Aside from his current presentation he has a hx of 1-2 partial SBOs 2/2 Crohn's, but otherwise has no surgical history and takes no medications besides Remicade. In the ED he was afebrile, tachycardic at 105, BP was 148/97, RR was 18, SpO2 was 98% on RA. CT abd/pelvis was ordered and showed the following: "Inflammatory changes of the terminal ileum and proximal ascending colon are seen, worsened from prior exam, with surrounding fat stranding and also abscess versus contained perforation in the adjacent mesentery. No fistulas are seen. Findings are compatible with history of Crohn's disease" Given his radiologic findings, [facility] were called to see if they could do IR drainage of the abscess vs. contained perforation, but none of them had available beds. [facility] will not operate. In the meantime he was started on IV Zosyn 3.375g q8hr, IV LRs q8hr, IV Tylenol 1g q8hr PRN. Today he reports that he feels stable, has not developed any new symptoms, and is looking forward to a bed opening at one of the tertiary centers listed above. See below for ROS. He did not have any questions for me or for the hospitalist magdalena merino. Review of Systems Review of Systems: Today denies bloody/mucoid stools, weight changes, sweats, abdominal distention, bleeding, bruising, palpitations, rashes, SOB, chest pain, presyncope/syncope Physical Exam Constitutional: WD/WN, vitals as above Respiratory: normal respiratory effort, lungs clear to auscultation Cardiovascular: RRR, no murmur, no edema Rate/Rhythm: regular rate and regular rhythm Gastrointestinal (Abdomen): inspection does not reveal any masses/skin changes/bruising, normal bowel sounds in all quadrants, +tenderness w/ palpation across the lower abdomen he feels originates from the LLQ, no rebound/guarding Skin: no rashes, warm and dry Neurologic: PERRL, EOMI, accommodation nl, no face palsy, no dysarthria Psychiatric: A+Ox3, euthymic affect Lymphatic: no LE edema Results & Data Results & Data ([facility]) Vital Signs (Past 12 Hours) Vital Signs Pulse Pulse Resp BP Pulse Ox 10/29/21 02:09 65 18 98 10/29/21 01:53 98 H 18 98/54 L 97 10/29/21 00:44 75 18 94/59 L 98 10/28/21 22:44 73 18 100/51 L 97 10/28/21 20:44 100 H 18 141/81 H 100 Laboratory Results 10/29/21 10/29/21 10/28/21 05:29 05:29 21:51 WBC 10.97 H RBC 4.22 L Hgb 12.5 L Hct 38.1 L MCV 90.3 MCH 29.6 MCHC 32.8 RDW Std Deviation 44.4 RDW Coeff of Tanvir 13.3 Plt Count 426 H MPV 10.0 Immature Gran % (Auto) 0.2 Neut % (Auto) 67.0 Lymph % (Auto) 17.6 Cassia % (Auto) 13.9 Eos % (Auto) 1.1 Baso % (Auto) 0.2 Neut # (Auto) 7.36 H Lymph # (Auto) 1.93 Cassia # (Auto) 1.52 H Eos # (Auto) 0.12 Baso # (Auto) 0.02 Immature Gran # (Auto) 0.02 Sodium 136 Potassium 3.6 Chloride 101 Carbon Dioxide 26 Anion Gap 9 BUN 10 Creatinine 1.02 Est Cr Clr Drug Dosing 114.3 Est GFR ( Amer) 117.9 Est GFR (Non-Af Amer) 101.7 BUN/Creatinine Ratio 9.8 L Glucose 90 Calcium 9.5 Magnesium 2.0 Total Bilirubin AST ALT Alkaline Phosphatase Total Protein Albumin Globulin Albumin/Globulin Ratio Lipase Urine Color Urine Appearance Urine pH Ur Specific Harrison Urine Protein Urine Glucose (UA) Urine Ketones Urine Blood Urine Nitrite Urine Bilirubin Urine Urobilinogen Ur Leukocyte Esterase Urine WBC (Auto) Urine RBC (Auto) U Hyaline Cast (Auto) U Epithel Cells (Auto) Urine Bacteria (Auto) SARS-CoV-2, RNA, NAAT NEGATIVE 10/28/21 10/28/21 10/28/21 19:35 19:35 19:30 WBC 9.85 RBC 4.82 Hgb 14.5 Hct 43.1 MCV 89.4 MCH 30.1 MCHC 33.6 RDW Std Deviation 43.4 RDW Coeff of Tanvir 13.2 Plt Count 453 H MPV 10.2 Immature Gran % (Auto) 0.2 Neut % (Auto) 68.7 Lymph % (Auto) 17.9 Cassia % (Auto) 12.4 Eos % (Auto) 0.6 Baso % (Auto) 0.2 Neut # (Auto) 6.77 H Lymph # (Auto) 1.76 Cassia # (Auto) 1.22 H Eos # (Auto) 0.06 Baso # (Auto) 0.02 Immature Gran # (Auto) 0.02 Sodium 135 L Potassium 3.7 Chloride 100 Carbon Dioxide 24 Anion Gap 11 BUN 14 Creatinine 0.96 Est Cr Clr Drug Dosing 121.5 Est GFR ( Amer) 126.8 Est GFR (Non-Af Amer) 109.4 BUN/Creatinine Ratio 14.6 Glucose 87 Calcium 9.2 Magnesium Total Bilirubin 0.5 AST 12 L ALT 12 Alkaline Phosphatase 85 Total Protein 8.4 H Albumin 4.0 Globulin 4.4 H Albumin/Globulin Ratio 0.9 Lipase 9 L Urine Color Dark Yellow Urine Appearance Clear Urine pH 5.5 Ur Specific Harrison 1.038 H Urine Protein Trace H Urine Glucose (UA) Negative Urine Ketones 3+ H Urine Blood Negative Urine Nitrite Negative Urine Bilirubin 1+ H Urine Urobilinogen Negative Ur Leukocyte Esterase Negative Urine WBC (Auto) 1-5 Urine RBC (Auto) 0-4 U Hyaline Cast (Auto) 5-10 H U Epithel Cells (Auto) 5-10 H Urine Bacteria (Auto) Negative SARS-CoV-2, RNA, NAAT Diagnostic Findings Abdomen/Pelvis CT 10/28/21 20:33 CT abd pelvis IV con only CLINICAL HISTORY: llq pain TECHNIQUE: Helical axial images of the abdomen and pelvis were obtained and displayed. Automated dose lowering techniques and/or adjustment according to patient size were utilized for this exam. This exam was performed with intravenous contrast. COMPARISON: None available at the time of this dictation. FINDINGS: Lower chest: No acute abnormality Liver: Unremarkable. No focal lesions are seen. Gallbladder and biliary tree: No calcified gallstones. Normal caliber wall. No intra- or extrahepatic biliary ductal dilation. Pancreas: Unremarkable, no focal lesions. Spleen: Unremarkable. Adrenals: Unremarkable. Kidneys and ureters: Unremarkable. Bladder: Unremarkable. Reproductive organs: Unremarkable. Bowel: There is marked wall thickening of the cecum and terminal ileum with surrounding fat stranding. There is a in adjacent fluid collection in the mid pelvis measuring approximately 52 x 24 mm. The appendix is normal. The remainder of the colon is normal in appearance. Of note, the fat plane between the inflamed bowel and the bladder is preserved. Lymph nodes Retroperitoneal: Unremarkable. Mesenteric: Unremarkable. Pelvic: Subcentimeter nodes are seen in the right external iliac stations. Peritoneum: Normal. Vessels: Unremarkable. Abdominal wall: A fat-containing umbilical hernia is seen. Bones: Unremarkable. IMPRESSION: Inflammatory changes of the terminal ileum and proximal ascending colon are seen, worsened from prior exam, with surrounding fat stranding and also abscess versus contained perforation in the adjacent mesentery. No fistulas are seen. Findings are compatible with history of Crohn's disease. ACT 112: Negative or not required by law. Electronically signed by: Asad Estrada M.D. 10/28/2021 9:27 PM Medications Administered Current Inpatient Medications Acetaminophen (Acetaminophen 1000 Mg/100 Ml Iv) 1,000 mg IV Q8H PRN PRN Reason: Pain Stop: 11/01/21 00:12 Last Admin: 10/29/21 01:28 Dose: 1,000 mg Documented by: Lactated Ringer's (Lr) 1,000 mls @ 80 mls/hr IV .[id number] JENA Stop: 11/28/21 00:14 Last Admin: 10/29/21 00:56 Dose: 80 mls/hr Documented by: Piperacillin Sod/Tazobactam (Sod 3.375 gm/ Dextrose) 115 mls @ 28.75 mls/hr IV Q8H [facility]; Protocol Stop: 11/08/21 01:59 Last Infusion: 10/29/21 06:48 Dose: Infused Documented by: Miscellaneous Information (Piperacill/Tazobac Consult Active) 1 ea N/A UD PRN PRN Reason: Consult Stop: 11/28/21 01:46 (1) Crohn disease Digestive disease complication type: with abscess Gastrointestinal tract location: unspecified location Qualified Code(s): K50.914 - Crohn's disease, unspecified, with abscess
--- NOTE | 2021-10-29 07:44 | Hospitalist Progress Note ---
Date of Service October 29, 2021 Assessment & Plan (1) Abdominal pain: Plan: Rodrigue Gongora is a 26yo male with PMHx significant for Crohn's disease (gets Remicade injections Q8wks - last on 10/07) who presented to [facility] ED on 10/28 for abdominal pain - found to have abscess vs contained perforation in proximal ascending colon. Abdominal Pain LLQ abdominal pain with intermittent fever/chills x1 week. CT A/P with inflammatory changes in terminal ileum and proximal ascending colon (worsened from prior exam) as well as abscess vs contained perforation in adjacent mesentery, without fistulas. - General Surgery consulted - recommends IR drainage at tertiary center. Currently there are no available beds at [facility], [facility] or [facility]. Patient has decided to be admitted here for med management. Dr. Curran will be consulted, and he is currently on wait list for a bed at [facility] (Dr. Anne is accepting physician) - continue Zosyn 4.5g IV Q8H - will not start steroids at this time given abscess vs contained perf - NPO, will start LR @80cc/hr - Tylenol 1g IV Q8H PRN for pain Crohn's Disease No previous surgeries. Symptoms had previously been well controlled on Remicade. - Remicade not due for another 5 weeks FEN/GI: NPO, LR @80cc/hr DVT Prophylaxis: not indicated Code Status: full code Disposition: med/surg with tele (2) Crohn disease: Admission and Anticipated Discharge Date Admission Date: October 29, 2021 Results & Data Results & Data ([facility]) Vital Signs (Past 12 Hours) Vital Signs Pulse Pulse Resp BP Pulse Ox 10/29/21 02:09 65 18 98 10/29/21 01:53 98 H 18 98/54 L 97 10/29/21 00:44 75 18 94/59 L 98 10/28/21 22:44 73 18 100/51 L 97 10/28/21 20:44 100 H 18 141/81 H 100 (1) Crohn disease Digestive disease complication type: with abscess Gastrointestinal tract location: unspecified location Qualified Code(s): K50.914 - Crohn's disease, unspecified, with abscess
[2021-10-29] MEDS: AMPICILLIN/SULBACTAM SOD 3,000 MG in 0.9 % SODIUM CHLORIDE 100 ML IV SCH ×2 (16:41→21:16)
--- NOTE | 2021-10-29 18:46 | Billing Data ---
Date of Service October 29, 2021 Coding Level of Care Code 06476 Subseq Hosp Care Lvl 3
--- NOTE | 2021-10-29 18:47 | Billing Data ---
Date of Service October 29, 2021 Coding Level of Care Code 68848 Subseq Hosp Care Lvl 3
[2021-10-30] MEDS: AMPICILLIN/SULBACTAM SOD 3,000 MG in 0.9 % SODIUM CHLORIDE 100 ML IV SCH ×4 (03:31→22:27)
--- NOTE | 2021-10-30 03:42 | Billing Data ---
Date of Service October 30, 2021 Coding Level of Care Code 70814 Initial Inpt Care Lvl 3
[2021-10-30] MEDS: LACTATED RINGER'S 1,000 ML IV SCH ×3 (04:05→22:26)
[2021-10-30 07:43] LABS: Hematocrit (blood only) 38.5 % (42-52); Hemoglobin 12.9 g/dL (14.0-18.0); Mean Corpuscular Hemoglobin 29.9 pg (25-34); Mean Corpuscular Hgb Conc 33.5 g/dL (32-36); Mean Corpuscular Volume 89.3 fL (80-100); Mean Platelet Volume 9.8 fL (7.4-10.4); Platelet Count 426 K/uL (130-400); RDW Coefficient of Variation 13.1 % (11.5-14.5); Red Blood Count 4.31 M/uL (4.7-6.1); White Blood Count 9.06 K/uL (4.8-10.8)
--- NOTE | 2021-10-30 10:29 | Surgery Progress Note ---
Date of Service October 30, 2021 Assessment & Plan (1) Crohn disease: (2) Perforated abdominal viscus: Plan: 26-year-old with a history of Crohn's disease presents with abdominal pain and CT scan demonstrating contained perforation and inflammation of the terminal ileum. This most likely related to his Crohn's disease. afebrile, vss abdominal pain minimal, controlled, improving no leukocytosis awaiting transfer to [facility] Plan: No acute surgical intervention required at this time Continue IV antibiotics and NPO for bowel rest, hopefully can be transferred to [facility] soon for IR placement of percutaneous drain for the intra-abdominal abscess our services signing off, please call with questions/concerns Dr. Khalil has seen and examined pt, agrees with above. Admission and Anticipated Discharge Date Admission Date: October 29, 2021 Subjective feeling better pain currently 10/10 still NPO awaiting transfer to [facility] no n/v Physical Exam Constitutional: WD/WN, vitals as above no acute distress and not ill appearing Neck: normal visual inspection and trachea midline Respiratory: normal respiratory effort Gastrointestinal (Abdomen): Inspection/Auscultation: abdomen normal to inspection; abdomen not distended Percussion/Palpation: + abdomen tender (lower abdomen bilaterally) and abdomen soft; no guarding, abdomen not rigid and abdomen not firm Skin: no rashes, warm and dry Psychiatric: A+Ox3, euthymic affect Results & Data ([facility]) Vital Signs (Past 12 Hours) Vital Signs Temp Pulse Pulse Resp BP Pulse Ox 10/30/21 03:00 36.5 C 73 20 121/77 98 10/30/21 01:04 76 10/29/21 22:42 37.0 C 107 H 20 106/67 97 Laboratory Results 10/30/21 Range/Units 07:26 WBC 9.06 (4.8-10.8) K/uL RBC 4.31 L (4.7-6.1) M/uL Hgb 12.9 L (14.0-18.0) g/dL Hct 38.5 L (42-52) % MCV 89.3 (80-100) fL MCH 29.9 (25-34) pg MCHC 33.5 (32-36) g/dL RDW Std Deviation 43.0 (36.4-46.3) fL RDW Coeff of Tanvir 13.1 (11.5-14.5) % Plt Count 426 H (130-400) K/uL MPV 9.8 (7.4-10.4) fL (1) Crohn disease Digestive disease complication type: with abscess Gastrointestinal tract location: unspecified location Qualified Code(s): K50.914 - Crohn's disease, unspecified, with abscess
--- NOTE | 2021-10-30 13:04 | Hospitalist Progress Note ---
Date of Service October 30, 2021 Assessment & Plan (1) Crohn disease: (2) Abdominal pain: (3) Perforated abdominal viscus: Plan: Summary: 26 y/o M with Crohn's tx w/ Remicade for past 6 years who presented with LLQ showing radiologic evidence of either abscess vs. contained perforation in the terminal ileum/proximal ascending colon #Crohn's disease, #perforated abdominal viscus & #abdominal pain -supported by known hx of Crohn's, LLQ pain, leukocytosis. Primarily receives care for this from Dr. Villatoro at [facility] -complicated by abscess vs. contained perforation seen on CT abd/pelvis -WBC WNL today 10/30/21 -pt is hemodynamically stable, IR drainage is warranted, waiting on placement to either [facility] -continue IV Unasyn -continue IV LRs and IV Tylenol -monitor symptoms, vitals, and labs/diagnostics -FHx noteworthy for UC in father #Disposition -med surg -accepted at [facility], awaiting a bed #FENGI: NPO Full code Admission and Anticipated Discharge Date Admission Date: October 29, 2021 Supervising Physician Co-Signing Physician Notes I personally examined the patient and verified all ulloa points of history and exam, discussed case, and agree with decision making with Kendal Desai MS2 feeling better abdominal pain doing well, still awaiting transfer vitals noted nad heent nc at mmm breathing unlabored no accessory muscles good effort skin no rashes no pallor or icterus crohn's complicated by abscess - fortunately is stable on abx. still for transfer to tertiary given crohn's / concern for inflammation potentially precpititating fistula, etc -- would want drained unless truly improves dramatically on abx alone. also given this flare would want his GI to eval for ?ongoing remicaide vs needing to consider other options otherwise as above Subjective HPI: Rodrigue is a 26 y/o M w/ PMHx of Crohn's disease diagnosed in 2016/treated with Remicade, monitored by Dr. Villatoro ([facility]), who came to the ED on 10/28/[address] Villatoro's recommendation. In the week leading up to his ED presentation, he noted LLQ abdominal pain exacerbated with bowel movements and minimally alleviated by Tylenol. He also received blood work from [facility] (ordered by Dr. Aberra), which the pt states showed "inflammation." He felt his sx were consistent with a Crohn's and noted having a single episode of fever (101 F) which occurred on 10/25/21. In the weeks leading up to his sx he had changes to his diet which he thinks may have contributed to his sx. Aside from his current presentation he has a hx of 1-2 partial SBOs 2/2 Crohn's, but otherwise has no surgical history and takes no medications besides Remicade. In the ED he was afebrile, tachycardic at 105, BP was 148/97, RR was 18, SpO2 was 98% on RA. CT abd/pelvis was ordered and showed the following:"Inflammatory changes of the terminal ileum and proximal ascending colon are seen, worsened from prior exam, with surrounding fat stranding and also abscess versus contained perforation in the adjacent mesentery. No fistulas are seen. Findings are compatible with history of Crohn's disease" Given his radiologic findings, [facility] were called to see if they could do IR drainage of the abscess vs. contained perforation, but none of them had available beds. [facility] will not operate. He was started on IV Zosyn 3.375g q8hr, IV LRs q8hr, IV Tylenol 1g q8hr PRN. Today he reports that he is feeling better and that he has not developed any new symptoms. He had a bowel movement this morning which was not painful or bloody although it was not well-formed, which he thinks may be due to his NPO status. After reaching out to his insurance company he was able to confirm that he was successfully accepted at [facility] for placement. He did not have any other questions or concerns. Review of Systems Review of Systems: All systems reviewed & are unremarkable except as noted in Subjective Physical Exam Gastrointestinal (Abdomen): inspection normal without rashes or masses normal bowel sounds, no hepatosplenomegaly mild tenderness to palpation across lower abdomen thath as improved since 10/29/21 Skin: no rashes, warm and dry Neurologic: PERRL, EOMI, accommodation nl, no face palsy, no dysarthria Psychiatric: A+Ox3, euthymic affect Results & Data Results & Data ([facility]) Vital Signs (Past 12 Hours) Vital Signs Temp Pulse Pulse Resp BP Pulse Ox 10/30/21 03:00 36.5 C 73 20 121/77 98 10/30/21 01:04 76 Laboratory Results 10/30/21 07:26 WBC 9.06 RBC 4.31 L Hgb 12.9 L Hct 38.5 L MCV 89.3 MCH 29.9 MCHC 33.5 RDW Std Deviation 43.0 RDW Coeff of Tanvir 13.1 Plt Count 426 H MPV 9.8 Medications Administered Current Inpatient Medications Acetaminophen (Acetaminophen 1000 Mg/100 Ml Iv) 1,000 mg IV Q8H PRN PRN Reason: Pain Stop: 11/01/21 00:12 Last Admin: 10/29/21 01:28 Dose: 1,000 mg Documented by: Lactated Ringer's (Lr) 1,000 mls @ 125 mls/hr IV .Q8H JENA Stop: 11/28/21 00:14 Last Admin: 10/30/21 12:27 Dose: 125 mls/hr Documented by: Ampicillin Sodium/Sulbactam Sodium 3,000 mg/ Sodium Chloride 108 mls @ 200 mls/hr IV Q6H JENA; Protocol Stop: 11/08/21 15:59 Last Infusion: 10/30/21 11:09 Dose: Infused Documented by: (1) Crohn disease Digestive disease complication type: with abscess Gastrointestinal tract location: unspecified location Qualified Code(s): K50.914 - Crohn's disease, unspecified, with abscess
--- NOTE | 2021-10-30 18:04 | Billing Data ---
Date of Service October 30, 2021 Coding Level of Care Code 39583 Subseq Hosp Care Lvl 3
[2021-10-31] MEDS: AMPICILLIN/SULBACTAM SOD 3,000 MG in 0.9 % SODIUM CHLORIDE 100 ML IV SCH ×4 (04:57→21:27)
[2021-10-31] MEDS: LACTATED RINGER'S 1,000 ML IV SCH ×3 (04:57→18:38)
--- NOTE | 2021-10-31 07:23 | Hospitalist Progress Note ---
Date of Service October 31, 2021 Assessment & Plan (1) Abdominal pain: Plan: Rodrigue Gongora is a 26yo male with PMHx significant for Crohn's disease (on Remicade injections Q8wks - last on 10/07) who presented to [facility] ED on 10/28 for abdominal pain - found to have abscess vs contained perforation in proximal ascending colon. Abdominal Pain LLQ abdominal pain with intermittent fever/chills x1 week. CT A/P with inflammatory changes in terminal ileum and proximal ascending colon (worsened from prior exam) as well as abscess vs contained perforation in adjacent mesentery, without fistulas. - General Surgery consulted - recommends IR drainage at tertiary center. Currently no available beds at [facility], [facility] or [facility]. Patient has decided to be admitted here for med management. Dr. Curran consulted - currently accepted to [facility] on wait list for a bed (Dr. Anne is accepting physician) - continue Zosyn 4.5g IV Q8H - will not start steroids at this time given abscess vs contained perf - NPO, will start LR @80cc/hr - Tylenol 1g IV Q8H PRN for pain - WBC wnl - continue Unasyn abx Crohn's Disease No previous surgeries. Symptoms had previously been well controlled on Remicade. - Remicade not due for another 5 weeks FEN/GI: NPO, LR @80cc/hr DVT Prophylaxis: not indicated Code Status: full code Disposition: med/surg with tele (2) Crohn disease: Admission and Anticipated Discharge Date Admission Date: October 29, 2021 Review of Systems Review of Systems: Negative fever chills Negative headache dizziness Negative chest pain palpitations SOB Negative nausea vomitting diarrhea constipation Negative numbness tingling rash swelling Physical Exam Constitutional: WD/WN, vitals as above well groomed, cooperative and comfortable Eyes: PERRL, conjunctivae normal, anicteric sclerae ENMT: external ear and nose normal, oropharynx normal Neck: trachea midline, no thyromegaly Respiratory: normal respiratory effort, lungs clear to auscultation Cardiovascular: RRR, no murmur, no edema Chest (Breasts): Chest: normal inspection of chest Gastrointestinal (Abdomen): Inspection/Auscultation: abdomen normal to inspection and normal bowel sounds; abdomen not distended Percussion/Palpation: + abdomen tender (in LLQ, improved from admission) Skin: no rashes, warm and dry Psychiatric: A+Ox3, euthymic affect Results & Data Results & Data ([facility]) Vital Signs (Past 12 Hours) Vital Signs Temp Pulse Resp BP Pulse Ox 10/30/21 21:15 36.9 C 92 H 16 120/67 97 10/30/21 20:25 37.1 C 85 16 110/75 95 Resident Activity Tracking Resident Involvement: Resident Care Provided Care Provided: Adult Hospital Medicine (1) Crohn disease Digestive disease complication type: with abscess Gastrointestinal tract location: unspecified location Qualified Code(s): K50.914 - Crohn's disease, unspecified, with abscess
[2021-10-31 08:00] LABS: Hematocrit (blood only) 39.3 % (42-52); Mean Corpuscular Hemoglobin 29.8 pg (25-34); Mean Corpuscular Hgb Conc 33.1 g/dL (32-36); Mean Corpuscular Volume 90.1 fL (80-100); Mean Platelet Volume 10.1 fL (7.4-10.4); Platelet Count 439 K/uL (130-400); RDW Coefficient of Variation 13.1 % (11.5-14.5); RDW Standard Deviation 43.3 fL (36.4-46.3); Red Blood Count 4.36 M/uL (4.7-6.1); White Blood Count 7.58 K/uL (4.8-10.8)
--- NOTE | 2021-10-31 17:31 | Discharge Summary ---
Date of Service October 31, 2021 Admission HPI Per Admitting Provider Rodrigue Gongora is a 26yo male with PMHx significant for Crohn's disease (gets Remicade injections Q8wks - last on 10/07) who presented to [facility] ED on 10/28 for constant LLQ abdominal pain x, without associated fever/chills, diar criselda/hematochezia/melena or N/V/hematemesis. Patient follows with [facility] for Crohn's disease and associated Remicade injections - he contacted his GI doctor regarding these symptoms and he was told to come for evaluation. In the ED, the patient was tachycardic to 105bpm and mildly hypertensive to 148/79 but otherwise hemodynamically stable and afebrile. Laboratory evaluation significant for plts 453, Na 135. Otherwise CBC/CMP unremarkable. Lipase WNL. UA without sign of infection. CT A/P showing inflammatory changes in terminal ileum and proximal ascending colon (worsened from prior exam) as well as abscess vs contained perforation in adjacent mesentery, without fistulas. Patient was given 1L NSS bolus and was started on Zosyn. Has not received pain medications thus far. Dr. Curran was consulted and recommends transfer to tertiary center for IR drainage, but there are currently no available beds in [facility], [facility] or [facility]. Patient has decided to be admitted here for med management. Dr. Curran will be consulted, and he is currently on wait list for a bed at [facility] (Dr. Anne is accepting physician). Admission Exam Per Admitting Provider General: A&Ox3. NAD. Cooperative. HEENT: Atraumatic, normocephalic. Pulm: CTAB A&P. -wheezes, -rales, -rhonchi. Symmetrical chest rise. No increase work of breathing. No respiratory distress. Cardiac: RRR, -mrg. Radial pulses intact and symmetrical. Abdominal: soft, non-distended, NA BS x 4, mild TTP in LLQ without rebound or guarding Skin: warm, dry, no rash Principal Diagnosis Crohn's Disease with abcess/perforation Discharge Exam Constitutional WD/WN, vitals as above Eyes PERRL, conjunctivae normal, anicteric sclerae ENMT external ear and nose normal, oropharynx normal Neck trachea midline, no thyromegaly Respiratory normal respiratory effort, lungs clear to auscultation Cardiovascular RRR, no murmur, no edema Chest (Breasts) Chest: normal inspection of chest Gastrointestinal (Abdomen) normal bowel sounds, soft, nontender, no hepatosplenomegaly mild discomfort on palpation to LLQ Skin no rashes, warm and dry Psychiatric A+Ox3, euthymic affect Discharge Data Allergies Allergy/AdvReac Type Severity Reaction Status Date / Time No Known Allergies Allergy Verified 10/28/21 21:16 Consultations 10/28/21 23:11 ED Decision to Admit Stat 10/28/21 23:21 Consult General Surgery Stat 10/31/21 17:09 Burn CD for patient Routine Ordered Studies 10/28/21 20:33 CT abd pelvis IV con only Stat Hospital Course (1) Perforated abdominal viscus: (2) Crohn disease: (3) Abdominal pain: Rodrigue Gongora is a 26yo male with PMHx significant for Crohn's disease (on Remicade injections Q8wks - last on 10/07) who presented to [facility] ED on 10/28 for abdominal pain - found to have abscess vs contained perforation in proximal ascending colon. Abdominal Pain LLQ abdominal pain with intermittent fever/chills x1 week prior to admission. CT A/P with inflammatory changes in terminal ileum and proximal ascending colon (worsened from prior exam) as well as abscess vs contained perforation in adjacent mesentery, without fistulas. - General Surgery consulted - recommends IR drainage at tertiary center. Patient has decided to be admitted here for med management while awaiting bed availability. Dr. Curran consulted - currently accepted to [facility], Dr. Anne is accepting physician - will not start steroids at this time given abscess vs contained perf - NPO, on IVF - WBC wnl - continue Unasyn 3g IV q6h Crohn's Disease No previous surgeries. Symptoms had previously been well controlled on Remicade. - Remicade not due for another 5 weeks Total Time Total Time Spent Total Time Spent (In Minutes): <30 Discharge Plan Discharge Items Patient Disposition: Transfer Acute Care Hospital Reason For Visit: ABDOMINAL PAIN, ABSCESS VS PERF Discharge Diagnosis: Crohn's Disease with abcess/perforation Activity: Per Instructions section Non-emergency contact: Primary Care Provider Call non-emergency contact if: you have any medication questions, your symptoms worsen and you have a fever Follow-up/Referrals: PCP,NO [Primary Care Provider] - Diet: Nothing by Mouth Addtl Attending Provider Instructions: Rodrigue Gongora is a 26yo male with PMHx significant for Crohn's disease (on Remicade injections Q8wks - last on 10/07) who presented to [facility] ED on 10/28 for abdominal pain - found to have abscess vs contained perforation in proximal ascending colon. Abdominal Pain LLQ abdominal pain with intermittent fever/chills x1 week prior to admission. CT A/P with inflammatory changes in terminal ileum and proximal ascending colon (worsened from prior exam) as well as abscess vs contained perforation in adjacent mesentery, without fistulas. - General Surgery consulted - recommends IR drainage at tertiary center. Patient has decided to be admitted here for med management while awaiting bed availability. Dr. Curran consulted - currently accepted to [facility], Dr. Anne is accepting physician - will not start steroids at this time given abscess vs contained perf - NPO, on IVF - WBC wnl - continue Unasyn 3g IV q6h Crohn's Disease No previous surgeries. Symptoms had previously been well controlled on Remicade. - Remicade not due for another 5 weeks Pending Studies at Discharge: No Stand-Alone Forms: [facility] Skilled Items Patient informed of condition?: Yes DNR: No Discharge Level of Care: Other Communicable Disease: No Discharge Prognosis: Stable Lines: Peripheral IV Urinary Catheter: No Medications and DC Order Prescriptions: Continued infliximab [Remicade] 100 mg Recon Soln 0 mg IV .Q8WKS RF: 0 Discharge Orders: Discharge Order (Routine); Ordered 10/31/21 Ordered By: Ashley West Admission Data Admit Date/Time: 10/29/21 00:13 Attending Provider: Sammy Evans Admit Provider: Georges Rain Primary Care Provider: PCP,NO Other Providers: Pepe Trinidad ; Austyn Curran Supervising Physician Co-Signing Physician Notes I personally examined the patient and verified all ulloa points of history and exam, discussed case, and agree with decision making with Dr West feels good overall vitals noted nad heent nc at mmm breathing unlabored no accessory muscles good effort skin no rashes no pallor or icterus abd soft nd nt no guarding or rebound crohn's complicated by abscess - fortunately is stable on abx. still for transfer to tertiary given crohn's / concern for inflammation potentially pre cipitating fistula, etc -- would want drained unless truly improves dramatically on abx alone. also given this flare would want his GI to eval for ?ongoing remicaide vs needing to consider other options -- transfer today otherwise as above Resident Activity Tracking Resident Involvement: Resident Care Provided Care Provided: Adult [facility]
--- NOTE | 2021-10-31 18:31 | Billing Data ---
Date of Service October 31, 2021 Coding Level of Care Code D/C DAY MANAGEMENT <30 MINS
== END 2021-10-31 23:10 | disposition short-term general hospital (02) | DRG 385 ==
LOC: ED 18:51 → SUATTDRO 10-29 00:13 → EDINP 10-29 00:13 → 2S 10-29 11:03 → 3N 10-30 20:50